=== PATIENT | male | born 1965 | race Hispanic/Latino ===

== ENCOUNTER → 2017-01-23 | Outpatient (CLI) | payer OTHER ==
[~2017-01-23] MED LIST: AGM875T PO; AZTH250C PO; CIPR500T78 PO; CYCL10TA9 PO; HYDR-1231 PO; HYDR-3720 PO; METF-479; METO100T6; NAPR500T PO; PRD20T PO; TRAM50TA2 PO
--- OUTSIDE RECORDS SUMMARY | 2017-01-23 11:06 | XMS REPORT | Continuity of Care Document ---
Author Author [facility] Organization [facility] Address Unknown Phone Unavailable Care Team Providers Care Admitting Coordinator Name Role Phone No Pcp, Na PCP Unavailable Source Comments Some departments are not documenting in the electronic medical record. If you do not see the information that you expected, contact Release of Information in the Health Information Management department at [phone] for further assistance in locating additional records.[facility] Active Allergies and Adverse Reactions No Known Allergies Current Medications Prescription Sig. Disp. Refills Start End Date Status Date METOPROLOL SUCCINATE Take 50 mg by mouth Active (TOPROL XL PO) daily. metFORMIN (GLUCOPHAGE) Take 500 mg by mouth Active 500 mg tablet daily. Active Problems Problem Noted Date Carpal tunnel syndrome on both sides 06/25/2014 Arm pain, diffuse 06/25/2014 Social History Tobacco Use Types Packs/Day Years Used Date Never Smoker Smokeless Tobacco: Never Used Tobacco Cessation: Counseling Given: No Comments: Last Filed Vital Signs Vital Sign Reading Time Taken Blood Pressure 131/81 02/28/2015 2:40 PM CDT Pulse 78 02/28/2015 2:40 PM CDT Temperature 37.4 C (99.3 F) 02/28/2015 2:40 PM CDT Respiratory Rate - - Height 1.676 m (5' 6") 02/28/2015 2:40 PM CDT Weight 96.163 kg (212 lb) 02/28/2015 2:40 PM CDT Body Mass Index 34.23 02/28/2015 2:40 PM CDT 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
--- NOTE | 2017-01-23 12:41 | Diagnostic Imaging Report ---
PROCEDURE: MRI left upper extremity without contrast. TECHNIQUE: Multiplanar, multisequence non contrast-enhanced MRI of the left upper extremity was accomplished. INDICATION: Left shoulder pain. FINDINGS: There are no previous MRI examinations available for comparison. The plain film examination of the left shoulder performed on 07/02/2016 failed to show any sign of an acute abnormality. On the T2 fat-saturated coronal series of this exam, there are a few small areas of increased signal within the substance of the rotator cuff. These findings are more likely due to tendinosis than to a partial tear. For the most part, the rotator cuff appears to be intact, and the supraspinatus muscle is not retracted or bunched. There is hypertrophy of the acromioclavicular joint, and this does result in mild narrowing of the outlet for the supraspinatus muscle. The biceps tendon is intact. The mid portion of the subscapularis tendon shows mild undulation. This is of uncertain etiology. There is no clear evidence for a tear of the subscapularis tendon. There does appear to be a small tear of the labrum anteriorly. The labrum is otherwise unremarkable. There is no abnormal signal arising from the osseous structures to suggest bone edema or a fracture. There is no sign of a joint effusion. IMPRESSION: 1. The small areas of altered signal within the rotator cuff are more likely due to tendinosis than to a partial tear. For the most part, the rotator cuff appears to be intact. 2. There is hypertrophy of the acromioclavicular joint, and this does result in mild narrowing of the outlet for the supraspinatus muscle. 3. There is a small tear of the labrum anteriorly. 4. There is mild undulation of the mid portion of the subscapularis tendon. There is no evidence for a tear of the tendon, however. 5. There is no sign of an acute bony abnormality. Dictated by: Dictated on workstation # [id number]
== END ==
LOC: RAD 11:03
PROVIDERS: ATTEND Nurse Practitioner
DX: M75.102 Unspecified rotator cuff tear or rupture of left shoulder, not specified as traumatic (principal)
CPT/HCPCS: 73221

== ENCOUNTER → 2017-10-08 | Outpatient (CLI) | payer OTHER ==
--- NOTE | 2017-10-08 20:21 | Diagnostic Imaging Report ---
PROCEDURE: US Gallbladder. TECHNIQUE: Multiple real-time grayscale images were obtained over the right upper quadrant in various projections. INDICATION: Right upper quadrant pain. FINDINGS: The pancreas is obscured by bowel gas. The liver is hyperechoic which could relate to hepatitis or fatty infiltration. There is a hypoechoic mass in the upper aspect of the left hepatic lobe measuring 3.7 x 1.8 x 1.9 [address] correlated with CT scan from 04/10/2011, this lesion appears to be present and with features in favor of hemangioma. There is hepatopetal flow in the portal vein. The CBD is obscured by bowel gas. The gallbladder demonstrates no stones or wall thickening. No pericholecystic fluid. The right kidney is 11.1 cm in length with no hydronephrosis or focal lesion. No fluid collection is seen in the upper right abdomen. Sonographic Ricketts's sign is reportedly negative. IMPRESSION: 1. Liver increased echogenicity is suggestive of hepatitis or fatty infiltration. 2. Left hepatic lobe mass was seen on prior CT scan and appears to represent a hemangioma. Dictated by: Dictated on workstation # [id number]
== END ==
LOC: RAD 08:13
PROVIDERS: ATTEND Nurse Practitioner Community Health
DX: R16.0 Hepatomegaly, not elsewhere classified (principal); K76.9 Liver disease, unspecified
CPT/HCPCS: 76705

== ENCOUNTER → 2017-10-29 | Outpatient (CLI) | payer SELFPAY ==
[~2017-10-29] MED LIST changes: +CATHETER FLUSH 10 ML SYR IV PRN; +NAPR-1071 PO; -NAPR500T PO
--- NOTE | 2017-10-29 14:17 | Diagnostic Imaging Report ---
CLINICAL INDICATION: Patient with right lateral abdominal pain. COMPARISON: Gallbladder ultrasound dated 10/08/2017. PROCEDURE: The patient was administered 5.0 millicuries of technetium 99m Choletec. After 60 minutes of the images, one can of Ensure was drink followed by another 60 minutes of imaging. A nuclear medicine hepatobiliary scan with ejection fraction was performed. FINDINGS: There is prompt uptake and excretion of radiotracer by the liver. Activity is visible in the gallbladder by 5 minutes and the small bowel by 70 minutes. Ejection fraction of the gallbladder is calculated at 42% (normal >35%). The gallbladder visibly empties on the scans following the ingestion of Ensure. IMPRESSION: Normal hepatobiliary scan with normal gallbladder ejection fraction. Dictated by: Dictated on workstation # [id number]
== END ==
LOC: CARD 11:43
PROVIDERS: ATTEND Nurse Practitioner Community Health
DX: R10.11 Right upper quadrant pain (principal); R10.31 Right lower quadrant pain
CPT/HCPCS: 78227

== ENCOUNTER 2021-08-09 21:29 | Emergency (ER) | payer SELFPAY ==
[~2021-08-09] VITALS: Ht 167.7 cm; Wt 90.8 kg
[~2021-08-09 21:29] MED LIST changes: -CATHETER FLUSH 10 ML SYR IV PRN; +TRM50T PO
[2021-08-09 21:54] LABS: BASOPHILS # (AUTO) 0.1 10^3/uL (0.0-0.1); BASOPHILS % (AUTO) 1 % (0-10); EOSINOPHILS # (AUTO) 0.2 10^3/uL (0.0-0.3); EOSINOPHILS % (AUTO) 2 % (0-10); HEMATOCRIT 43 % (40-54); HEMOGLOBIN 15.1 g/dL (13.3-17.7); LYMPHOCYTES # (AUTO) 3.9 10^3/uL (1.0-4.0); LYMPHOCYTES % (AUTO) 47 % (12-44); MEAN CORPUSCULAR HEMOGLOBIN 31 pg (25-34); MEAN CORPUSCULAR HGB CONC 35 g/dL (32-36); MEAN CORPUSCULAR VOLUME 90 fL (80-99); MEAN PLATELET VOLUME 10.9 fL (9.0-12.2); MONOCYTES # (AUTO) 0.7 10^3/uL (0.0-1.0); MONOCYTES % (AUTO) 9 % (0-12); NEUTROPHILS # (AUTO) 3.5 10^3/uL (1.8-7.8); NEUTROPHILS % (AUTO) 42 % (42-75); PLATELET COUNT 182 10^3/uL (130-400); WHITE BLOOD COUNT 8.3 10^3/uL (4.3-11.0)
[2021-08-09 22:04] LABS: POTASSIUM 3.9 MMOL/L (3.6-5.0)
[2021-08-09 22:05] LABS: ALBUMIN 3.9 GM/DL (3.2-4.5)
[2021-08-09 22:06] LABS: CALCIUM 9.3 MG/DL (8.5-10.1)
[2021-08-09 22:08] LABS: TOTAL PROTEIN 7.2 GM/DL (6.4-8.2)
[2021-08-09 22:12] LABS: CREATININE SERUM 0.84 MG/DL (0.60-1.30)
[2021-08-09 22:13] LABS: BILIRUBIN,URINE NEGATIVE (NEGATIVE); CLARITY,URINE CLEAR; COLOR,URINE YELLOW; GLUCOSE, URINE (UA) NEGATIVE (NEGATIVE); KETONES,URINE NEGATIVE (NEGATIVE); LEUKOCYTE ESTERASE ,URINE NEGATIVE (NEGATIVE); NITRITE,URINE NEGATIVE (NEGATIVE); PH,URINE 7.5 (5-9); PROTEIN,URINE NEGATIVE (NEGATIVE)
[2021-08-09 22:21] LABS: BACTERIA,URINE MODERATE /HPF; WBC,URINE 0-2 /HPF
[2021-08-09] MEDS ORDERED: fentaNYL INJ 100 MCG/2 ML AMP IVP STA (22:28)
[2021-08-09] MEDS ORDERED: NS IV 1000 ML 1,000 ML IV SCH (22:30)
[2021-08-09] MEDS ORDERED: ONDANSETRON 4 MG/2 ML (SDV) Z0FRAN IVP ONE (22:30)
[2021-08-09] MEDS ORDERED: ONDANSETRON 4 MG/2 ML (SDV) Z0FRAN ONE (22:34)
[2021-08-09] MEDS ORDERED: fentaNYL INJ 100 MCG/2 ML AMP ONE (22:34)
[2021-08-09] MEDS ORDERED: NS IV 1000 ML 1,000 ML ONE (22:34)
[2021-08-09 22:39] LABS: AMYLASE 44 U/L (25-125)
--- NOTE | 2021-08-09 22:39 | ED Abdominal Pain ---
General Chief Complaint: Abdominal/GI Problems Stated Complaint: RLQ PAIN Nursing Triage Note: intermittant right sided abdominal pain x3 months, worse today. (ALEJANDRO LÓPEZ) History of Present Illness Date Seen by Provider: Aug 09, 2021 Time Seen by Provider: 21:45 Initial Comments 56-year-old male presents for 3-month history of right upper quadrant pain. He reports that is been worse over the last 3 to 4 days. He has been having intermittent diarrhea for the last 2 weeks. He reports mild nausea today no vomiting. He has had no previous abdominal surgeries. He was seen at [facility] in June 2021 and a mass was found in the left lobe of the liver he was recommended for follow-up with CT but it has not been done, patient reports waiting on [facility] to call him with CT schedule. Patient is wishing to have the follow-up CT completed tonight. No history of previous abdominal surgeries. Patient denies history of liver disease, hepatitis, or regular alcohol use. Timing/Duration: Intermittent Severity/Quality: Moderate Location: RUQ Radiation: No Radiation Associated Symptoms: No Back Pain; Nausea/Vomiting; No Swelling/Mass in Abdomen (ALEJANDRO LÓPEZ) Allergies and Home Medications Allergies Coded Allergies: No Known Drug Allergies (Unverified , 05/11/09) Patient Home Medication List Home Medication List Reviewed: Yes (ALEJANDRO LÓPEZ) Metformin HCl (Metformin HCl ER) 1,000 Mg Tab.er.24, (Reported) Entered as Reported by: PETE ARAYA on 03/13/161816 Last Action: Last Taken Edited Metoprolol Succinate (Toprol Xl) 100 Mg Tab.er.24h, (Reported) Entered as Reported by: PETE ARAYA on 03/13/161816 Last Action: Last Taken Edited Discontinued Medications Cyclobenzaprine HCl (Cyclobenzaprine HCl) 10 Mg Tablet, 10 MG PO Q8H PRN for SPASMS Discontinued Reason: No Longer Taking Prescribed by: MAURICIO BOUDREAUX on 07/02/161826 Last Action: Discontinued Tramadol HCl (Tramadol HCl) 50 Mg Tablet, 50 MG PO Q4H PRN for PAIN Discontinued Reason: No Longer Taking Prescribed by: MAURICIO BOUDREAUX on 07/02/161826 Last Action: Discontinued Review of Systems Review of Systems Constitutional: no symptoms reported, see HPI Gastrointestinal: See HPI, Abdominal Pain, Diarrhea, Nausea; Denies Vomiting (ALEJANDRO LÓPEZ) All Other Systems Reviewed Negative Unless Noted: Yes (ALEJANDRO LÓPEZ) Past Frcipgk-Kdhjsg-Rastbt Hx Patient Social History Tobacco Use?: No Substance use?: No Alcohol Use?: Yes Alcohol Frequency: Once in a while Pt feels they are or have been: No (ALEJANDRO LÓPEZ) Immunizations Up To Date Tetanus Booster (TDap): Unknown First/Initial COVID19 Vaccinat: 04/12 Second COVID19 Vaccination Caesar: 05/13 COVID19 Vaccine 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: LinPrim (ALEJANDRO LÓPEZ) Seasonal Allergies Seasonal Allergies: No (ALEJANDRO LÓPEZ) Past Medical History Surgery/Hospitalization HX: ortho, niddm, htn, high lipids Respiratory: No Endocrine: Yes Diabetes, Non-Insulin dep Are Your Blood Sugars Over 250: No Adverse Reaction/Blood Tranf: No (ALEJANDRO LÓPEZ) Family Medical History Reviewed and Corrections made (ALEJANDRO LÓPEZ) No Pertinent Family Hx (ALEJANDRO LÓPEZ) Physical Exam Vital Signs Vital Signs - First Documented 08/09/21 21:43 Temp 36.9 Pulse 77 Resp 16 B/P (MAP) 151/99 (116) Pulse Ox 99 O2 Delivery Room Air (ROSANGELA,SOWMYA K DO) Vital Signs Capillary Refill : (ALEJANRDO LÓPEZ) Height/Weight/BMI Height: 5'6" Weight: 200lbs. oz. 90.901880ox; 32.00 BMI Method:Stated General Appearance: WD/WN, no apparent distress Neck: non-tender, full range of motion, supple, normal inspection Respiratory: chest non-tender, lungs clear, normal breath sounds Cardiovascular: normal peripheral pulses, regular rate, rhythm Gastrointestinal: normal bowel sounds, soft, no pulsatile mass; No rebound; tenderness; No mass Extremities: normal range of motion, non-tender, normal inspection, no pedal ed nathan Back: normal inspection, no CVA tenderness, no vertebral tenderness Neurologic/Psychiatric: no motor/sensory deficits, alert, normal mood/affect, oriented x 3 Skin: normal color, warm/dry Lymphatic: no adenopathy; No inguinal node tender (R), No inguinal node tender (L) (ALEJANDRO LÓPEZ) Progress/Results/Core Measures Results/Orders Lab Results Laboratory Tests Test 08/09/21 21:48 08/09/21 22:07 Range/Units White Blood Count 8.3 4.3-11.0 10^3/uL Red Blood Count 4.82 4.30-5.52 10^6/uL Hemoglobin 15.1 13.3-17.7 g/dL Hematocrit 43 40-54 % Mean Corpuscular Volume 90 80-99 fL Mean Corpuscular Hemoglobin 31 25-34 pg Mean Corpuscular Hemoglobin Concent 35 32-36 g/dL Red Cell Distribution Width 12.7 10.0-14.5 % Platelet Count 182 130-400 10^3/uL Mean Platelet Volume 10.9 9.0-12.2 fL Immature Granulocyte % (Auto) 0 % Neutrophils (%) (Auto) 42 42-75 % Lymphocytes (%) (Auto) 47 H 12-44 % Monocytes (%) (Auto) 9 0-12 % Eosinophils (%) (Auto) 2 0-10 % Basophils (%) (Auto) 1 0-10 % Neutrophils # (Auto) 3.5 1.8-7.8 10^3/uL Lymphocytes # (Auto) 3.9 1.0-4.0 10^3/uL Monocytes # (Auto) 0.7 0.0-1.0 10^3/uL Eosinophils # (Auto) 0.2 0.0-0.3 10^3/uL Basophils # (Auto) 0.1 0.0-0.1 10^3/uL Immature Granulocyte # (Auto) 0.0 0.0-0.1 10^3/uL Sodium Level 139 135-145 MMOL/L Potassium Level 3.9 3.6-5.0 MMOL/L Chloride Level 106 98-107 MMOL/L Carbon Dioxide Level 23 21-32 MMOL/L Anion Gap 10 5-14 MMOL/L Blood Urea Nitrogen 16 7-18 MG/DL Creatinine 0.84 0.60-1.30 MG/DL Estimat Glomerular Filtration Rate 95 BUN/Creatinine Ratio 19 Glucose Level 103 70-105 MG/DL Calcium Level 9.3 8.5-10.1 MG/DL Corrected Calcium 9.4 8.5-10.1 MG/DL Total Bilirubin 1.0 0.1-1.0 MG/DL Aspartate Amino Transf (AST/SGOT) 53 H 5-34 U/L Alanine Aminotransferase (ALT/SGPT) 62 H 0-55 U/L Alkaline Phosphatase 85 40-136 U/L Total Protein 7.2 6.4-8.2 GM/DL Albumin 3.9 3.2-4.5 GM/DL Amylase Level 44 25-125 U/L Lipase 30 8-78 U/L Urine Color YELLOW Urine Clarity CLEAR Urine pH 7.5 5-9 Urine Specific [place] 1.015 L 1.016-1.022 Urine Protein NEGATIVE NEGATIVE Urine Glucose (UA) NEGATIVE NEGATIVE Urine Ketones NEGATIVE NEGATIVE Urine Nitrite NEGATIVE NEGATIVE Urine Bilirubin NEGATIVE NEGATIVE Urine Urobilinogen 2.0 < = 1.0 MG/DL Urine Leukocyte Esterase NEGATIVE NEGATIVE Urine RBC (Auto) NEGATIVE NEGATIVE Urine RBC NONE /HPF Urine WBC 0-2 /HPF Urine Squamous Epithelial Cells 10-25 H /HPF Urine Crystals NONE /LPF Urine Bacteria MODERATE H /HPF Urine Casts NONE /LPF Urine Mucus NEGATIVE /LPF Urine Culture Indicated YES (SOWMYA ADAMES DO) Medications Given in ED Current Medications Medications Dose Ordered Sig/Taylor Route Start Time Stop Time Status Last Admin Dose Admin Iohexol 100 ml ONCE ONCE IV 08/09/21 22:45 08/09/21 22:46 DC 08/09/21 22:51 100 ML Ondansetron HCl 4 mg ONCE ONCE IVP 08/09/21 22:30 08/09/21 22:38 DC 08/09/21 22:36 4 MG Sodium Chloride 100 ml ONCE ONCE IV 08/09/21 22:45 08/09/21 22:46 DC 08/09/21 22:51 80 ML (SOWMYA ADAMES DO) Vital Signs/I&O 08/09/21 08/09/21 21:43 23:38 Temp 36.9 36.7 Pulse 77 60 Resp 16 16 B/P (MAP) 151/99 (116) 141/86 Pulse Ox 99 99 O2 Delivery Room Air Room Air (SOWMYA ADAMES DO) Blood Pressure Mean: 116 Progress Progress Note : Time: 21:45 Progress Note patient seen and evaluated, reviewed US from [facility] 07/16/21 that showed an ill defined mass in the left lobe of the liver 2 cm. Will get labs, CT with contrast, IV NS 1 L, Zofran 4 mg and Fentanyl 50 mcg IV. 2230 patient reports less pain in RUQ. [address] report from radiology. 2315 CT results discussed with patient, no cancerous mass. D/C instructions and return precautions reviewed. (ALEJANDRO LÓPEZ) Departure Impression Primary Impression: Abdominal pain Qualified Codes: R10.11 - Right upper quadrant pain Additional Impression: Hemangioma Qualified Codes: D18.03 - Hemangioma of intra-abdominal structures Disposition: HOME, SELF-CARE Condition: Improved Departure-Patient Inst. Decision time for Depature: 23:15 (ALEJANDRO LÓPEZ) Referrals: SULEMAN MCKEON MD (PCP) Primary Care Physician NEHA DAILEY (Family) Primary Care Physician Patient Instructions: Nonalcoholic Fatty Liver Disease (DC), Severe Abdominal Pain, Adult (DC) Add. Discharge Instructions: Hold Metformin for 48 hours, since you had IV contrast. May take tramadol every 6-8 hours for pain. Avoid fried or fatty foods. Over the counter diarrhea medicine, if symptoms are not improving. Increase water in diet, 16 oz every 2 hours while awake. Follow up with Dr Mckeon. Return to the emergency dept for new, urgent health care needs. All discharge instructions reviewed with patient and/or family. Voiced understanding. ATTENDING PHYSICIAN NOTE: I WAS PHYSICALLY PRESENT ER PHYSICIAN WHEN THIS PATIENT WAS IN ER, BUT I WAS NOT INVOLVED IN DECISION MAKING OR ANY CARE OF THIS PATIENT. (SOWMYA ADAMES DO) Copy Copies To 1: SULEMAN MCKEON MD, AMY ARNP Aug 09, 2021 22:39 SOWMYA ADAMES DO Aug 10, 2021 00:03
[2021-08-09] MEDS ORDERED: HOLD METFORMIN - RECEIVED CONTRAST 20 ML VIAL IV SCH (22:45)
[2021-08-09] MEDS ORDERED: NS 100 ML (IVPB) BAG IV ONE (22:45)
[2021-08-09] MEDS ORDERED: IOHEXOL 350 MG/ML 100 ML (OMNIPAQUE 350) VIAL IV ONE (22:45)
[2021-08-09 22:48] LABS: LIPASE 30 U/L (8-78)
--- NOTE | 2021-08-09 23:16 | Diagnostic Imaging Report ---
CT ABDOMEN/PELVIS W TECHNIQUE: Multiple contiguous axial images were obtained through the abdomen and pelvis after administration of intravenous contrast. All CT scans use one or more of the following dose optimizing techniques: automated exposure control, MA and/or KvP adjustment based on patient size and exam type or iterative reconstruction. INDICATION: Right upper quadrant pain. Liver mass. COMPARISON: None available. FINDINGS: Lower chest: The lung bases are clear. No pericardial or pleural effusion. Peritoneum: No free intraperitoneal air or fluid. Liver and biliary system: Marked hypoattenuation of the liver is indicative of hepatic steatosis. In segment 2 of the left hepatic lobe there is a 2.1 x 1.7 cm rim-enhancing lesion which has progressive central filling indicative of hemangioma. No concerning focal hepatic lesion. The gallbladder is normal. No biliary duct dilation. Spleen and Pancreas: Spleen is normal. The pancreas enhances normally without mass lesion or peripancreatic inflammatory changes. Adrenals: Normal. tract: The kidneys enhance normally without suspicious mass or obstruction. Urinary bladder is distended without wall thickening. Prostate is normal in appearance. GI tract: Stomach is decompressed. No bowel obstruction. No pericolonic inflammatory changes. Normal appendix. Vasculature and Lymph nodes: Normal caliber aorta. No abdominal or pelvic lymphadenopathy. Musculoskeletal: No concerning osseous lesion. IMPRESSION: 1. No acute inflammatory or obstructive process. 2. Diffuse hepatic steatosis. 3. Benign hemangioma in the left hepatic lobe. Dictated by: Dictated on workstation # [id number]
[2021-08-09 23:38] VITALS: BP 141/86
== END 2021-08-09 23:42 | disposition home or self-care (01) ==
LOC: EDUNIT# 21:29 → ER 21:31
DX: D18.03 Hemangioma of intra-abdominal structures (principal); I10 Essential (primary) hypertension; E11.9 Type 2 diabetes mellitus without complications; Z79.84 Long term (current) use of oral hypoglycemic drugs; Z79.899 Other long term (current) drug therapy
CPT/HCPCS: 36415; 74177; 80053; 81000; 82150; 83690; 85025; 87088; 96374; 96375